=== PATIENT | female | born 1960 | race Caucasian/White ===

== ENCOUNTER 2025-02-09 14:19 | Outpatient (AMB) | payer MEDICARE, SELFPAY ==
--- NOTE | 2025-02-09 14:22 | A.OFFVIS_ITS ---
Vital Signs 02/09/25 14:25 Height 5 ft 4 in Weight 163 lb 8 oz BMI 28.1 BP 140/82 H Blood Pressure Location Rt brachial Position Sitting Pulse 62 Pulse Source Pulse Oximeter Pulse Oximetry (%) 99 Oxygen Delivery Method Room Air Intake Visit Reasons: ENP-Tremor on both hands Intake Note: NPV external referred by PCP Jackson Enriquez ([facility]) for tremor of both hands Count Team Member Required: No Accompanied by: Self / Same As Patient Allergies No Known Allergies Allergy (Verified 02/09/25 14:27) Medication List - Last Reconciled 02/09/25 by Windy Heller MD aripiprazole 2.5 mg (1/2 x 5 mg) PO DAILY atenolol 25 mg PO DAILY cholecalciferol (vitamin D3) 25 mcg PO DAILY citalopram (Celexa) 20 mg PO DAILY folic acid 1 mg PO DAILY lamotrigine (Lamictal) 300 mg PO DAILY losartan 25 mg PO DAILY quetiapine (Seroquel) 25 mg PO BEDTIME HPI Comments Details: 64y/o female comes for evaluation of tremors. She was diagnosed in 2000 with bipolar disorder and was on lithium for 10 years . she had severe tremors while she was on lithium which was stopped and the tremors resolved. This year she started noticing tremors in jarad hands R>L left - more with action and posture. Her tried to decrease her abilify to see if her tremors improved but it worsened. so she is back on abilify and she feels her tremors have improved. she was also started on atenelol which helped her tremors. No voice or tongue tremors. she has mild memory issues .she sleeps good her mood is stable she denies any difficulty with utensils, dressing or shower. Gait is stable [facility] Medical History (Updated 02/09/25 @ 14:48 by Windy Heller MD) Coarse tremors Nodular goiter Hypothyroidism Bipolar disorder Depression Surgical History History of tonsillectomy Hx of colonoscopy Physical Exam Vital Signs: Last Vital Signs Pulse 62 02/09/25 14:25 BP 140/82 H 02/09/25 14:25 Pulse Ox 99 02/09/25 14:25 Oxygen Delivery Method Room Air 02/09/25 14:25 BMI result Body Mass Index 28.1 Const General: cooperative, healthy appearing, comfortable and no acute distress Nutritional Appearance: average body habitus Orientation/consciousness: patient oriented x3 Eyes Pupils: Equal, round and reactive pupils present Neuro Other: mild facial movements - under eyes and some lower lip No tongue or perioral movements Mild right UE postural tremors Mild cog wheel rigidity 2 on right UE FFM and foot taps decreased R>L gait- decreased arm swings right, good stride and posture General: patient oriented x3, moves all extremities and no focal motor deficits Cranial nerves: Yes Facial sensation intact/muscles of mastication intact, Yes Equal, round and reactive pupils present, Yes Bilaterally intact EOM present, Yes Nystagmus not present, Yes Normal facial strength present, Yes Midline tongue present and Yes Symmetric palate elevation present Cognition (Neuro): normal cognition Motor exam (neuro): 5/5 motor strength present throughout Deep tendon reflexes (DTR's): Right triceps reflex intensity grade: 3+, Left triceps reflex intensity grade: 3+, Rt Biceps (C5, C6): 3+, Left biceps reflex intensity grade: 3+, Right brachioradialis reflex intensity grade: 3+, Left brachioradialis reflex intensity grade: 3+, Right patellar reflex intensity grade: 4+ and Left patellar reflex intensity grade: 4+ Coordination: [id number] test normal Assessment & Plan Assessment & Plan (1) Coarse tremors: Comment: with mild extrapyraidal symptoms - likley due to exposure to antipsyhcotics Code(s): G25.2 - Other specified forms of tremor Category: Medical Plan Tremors are mild and stable EPS is mild Suggested to continue atenelol 25 mg qd and will monitor Extrapyramidal symptoms she has hyperreflexia- but denies any neck pain weakness or numbness- will monitor clinically will review MRI brain Medications: New aripiprazole 2.5 mg (1/2 x 5 mg) PO DAILY 30 tabs 0RF Coding Level of Care Code New Pt Level 4 (82791) Complex EM visit Add On G2211 Diagnoses Coarse tremors G25.2
--- OUTSIDE RECORDS SUMMARY | 2025-02-09 14:22 | XMS_ITS | Clinical Summary ---
Author Organization [facility] Address [address] [address] Phone Care Team Providers Care Client Account Specialist Name Role Phone Jackson Schroeder MD Primary Care Provider Allergies No known active allergies Medications QUEtiapine (SEROquel) 25 MG tablet 09/03/2011 Active citalopram (CeleXA) 40 MG tablet 09/03/2011 Active lamoTRIgine (LaMICtal) 150 MG tablet 05/23/2021 Active ARIPiprazole (ABILIFY) 5 MG tablet Take 5 mg by mouth 09/03/2011 Active Cholecalciferol (Vitamin D) 25 MCG (1000 UT) tablet Take by mouth Active folic acid (FOLVITE) 1 MG tablet Take 1 mg by mouth 1 (one) time each day Active losartan (COZAAR) 25 MG tablet Take 25 mg by mouth 1 (one) time each day For 30 days 03/31/2024 Active Blood Pressure Monitoring (Adult Blood Pressure Cuff Lg) kit 1 KIT 1 (ONE) TIME EACH DAY 1 kit 04/20/2024 Active Active Problems Problem Noted Date Diagnosed Date Hypothyroidism 03/04/2023 03/04/2023 Anemia 08/05/2021 03/04/2023 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 03/04/2023 Monoclonal gammopathy of uncertain significance 08/05/2021 03/04/2023 Immunizations Immunization Administration Dates Next Due Pfizer SARS-COV-2 09/11/2020,08/20/2020 Family History Medical History Relation Comments No Known Problems Brother No Known Problems Father Cancer Mother COPD Sister Relation Status Comments Brother Father Mother Sister Social History Tobacco Use Types Packs/Day Years Used Date Smoking Tobacco: Never Passive Smoke Exposure: Never Smokeless Tobacco: Never Tobacco Cessation:Counseling Given: Not Answered Alcohol Use Standard Drinks/Week Comments Never 0 (1 standard drink = 0.6 oz pur e alcohol) Comments Unknown Sex and Gender Information Value Date Recorded Sex Assigned at Not on file Legal Sex Female 1:39 PM EDT Gender Identity Not on file Sexual Orientation Not on file Last Filed Vital Signs Vital Sign Reading Time Taken Comments Blood Pressure 136/68 04/20/2024 12:59 PM EDT Pulse 74 04/20/2024 12:59 PM EDT Temperature - - Respiratory Rate - - Oxygen Saturation 99% 04/08/2023 2:51 PM EDT Inhaled Oxygen Concentration - - Weight 72.1 kg (159 lb) 04/20/2024 12:59 PM EDT Height - - Body Mass Index - - Plan of Treatment Upcoming Encounters Date Type Department Care Team (Late st Contact Info) Description 05/08/2025 1:00 PM EST Office Visit [facility] [address] [phone] Demetrio Valdez MD [address] [phone] Health Maintenance Due Date Last Done Comments Breast Cancer Screening 1960 Pneumococcal Vaccine: 50+ Ye ars (1 of 2 - PCV) 02/17/1979 Colorectal Cancer Screening: Annual FOBT 02/17/2009 Colorectal Cancer Screening: Colonoscopy 02/17/2009 Colorectal Cancer Screening: Sigmoidoscopy 02/17/2009 Influenza Vaccine (#1) 2025 Hepatitis B Vaccine Aged Out No longe r eligible based on patient's age to complete this topic Insurance [facility] Care Teams Client Account Specialist Relationship Specialty Start Date End Date Jackson Schroeder MD [address] [place] [address] PCP - General Internal Medicine 02/23/23
--- OUTSIDE RECORDS SUMMARY | 2025-02-09 14:22 | XMS_ITS | Clinical Summary ---
Author Organization [facility] Address [address] [place] [address] Care Team Providers Care Shooter Helper Name Role Phone Jackson Schroeder MD Primary Care Provider [phone] Allergies No known active allergies Medications Medication Sig Dispensed Refills Start Date End Date Status ARIPiprazole (Abilify) 5 MG tablet Take 5 mg by mouth. 0 09/03/2011 Active citalopram (CeleXA) 40 MG tablet 0 05/23/2021 Active lamoTRIgine (LaMICtal) 150 MG tablet 0 05/23/2021 Active QUEtiapine (SEROquel) 25 MG tablet 0 06/14/2021 Active Active Problems Problem Noted Date Diagnosed Date MGUS (monoclonal gammopathy of unknown significa nce) 08/05/2021 Elevated serum immunoglobulin free light chain l evel 08/05/2021 Anemia in stage 3a chronic kidney disease 2021 Family History Medical History Relation Name Comments Leukemia Brother Melanoma Mother Cancer Paternal Aunt Relation Name Status Comments Brother Mother Paternal Aunt Social History Tobacco Use Types Packs/Day Years Used Date Smoking Tobacco: Never Smokeless Tobacco: Never Alcohol Use Standard Drinks/Week Comments Yes 3 (1 standard drink = 0.6 oz pur e alcohol) Sex and Gender Information Value Date Recorded Sex Assigned at Not on file Gender Identity Not on file Sexual Orientation Not on file Last Filed Vital Signs Vital Sign Reading Time Taken Comments Blood Pressure 157/82 08/05/2021 1:26 PM EST Pulse 73 08/05/2021 1:26 PM EST Temperature 36.6 C (97.8 F) 08/05/2021 1:26 PM EST Respiratory Rate - - Oxygen Saturation 100% 08/05/2021 1:26 PM EST Inhaled Oxygen Concentration - - Weight 71.5 kg (157 lb 9.6 oz) 08/05/2021 1:26 P M EST Height 162.6 cm (5' 4 ) 08/05/2021 1:26 PM EST Body Mass Index 27.05 08/05/2021 1:26 PM EST Plan of Treatment Health Maintenance Due Date Last Done Comments Hepatitis C Screening 1960 Pneumococcal Vaccine (1 of 2 - PCV) 02/17/1966 Pneumococcal Vaccine (1 of 2 - PCV) 02/17/1966 Depression Screening 1972 Preventative Health Evaluation 02/17/1978 DTap / Tdap / Td (1 - Tdap) 02/17/1979 Shingrix-Zoster Vaccine (1 o f 2) 02/17/1979 Cervical Cancer Screening (Pap Smear) 02/17/1981 Colon Cancer Screening (Colonoscopy) 02/17/2005 Breast Cancer Screening (Mammogram) 02/17/2010 COVID-19 Vaccine (3 - Pfizer risk series) 10/09/2020 09/11/2020, 08/20/2020 Influenza Vaccine (#1) 2025 RSV Adult > 60+ Yrs or (1 - 1-dose 75+ series) 02/17/2035 Hepatitis B Vaccines Aged Out No long er eligible based on patient's age to complete this topic RSV Ped < 20 months Aged Out No longe r eligible based on patient's age to complete this topic Care Teams Shooter Helper Relationship Specialty Start Date End Date Jackson Schroeder MD [address] [facility] [address] [place] [address] PCP - General Internal Medicine 06/20/21
--- OUTSIDE RECORDS SUMMARY | 2025-02-09 14:22 | XMS_ITS | Continuity of Care Document ---
Author Organization [facility] Address [address] [place] [address] Phone [phone] Social History Type Date Description Comments Sex Female Sex Unknown Medical Devices Description No Information Available Encounters Description No Information Available Assessments Description No Information Available Plan of Treatment No Information Available Functional Status Description No Information Available Mental Status Description No Information Available Referrals Description No Information Available
--- OUTSIDE RECORDS SUMMARY | 2025-02-09 14:22 | XMS_ITS | Clinical Summary ---
Author Organization [facility] Address [address] [place] [address] Care Team Providers Care Drywall Hanger Helper Name Role Phone Unavailable Primary Care Provider Unavailabl e Immunizations Immunization Administration Dates Next Due Covid-19 MRNA Vaccine - Pfizer 12+ (Purple Cap) 09/11/2020,08/20/2020 Social History Tobacco Use Types Packs/Day Years Used Date Smoking Tobacco: Never Assessed Comments Unknown Sex and Gender Information Value Date Recorded Sex Assigned at Not on file Legal Sex Female 5:08 PM EST Gender Identity Not on file Sexual Orientation Not on file Plan of Treatment Health Maintenance Due Date Last Done Comments Hepatitis C Virus Screening 1960 HIV Screening 02/17/1973 DTaP/Tdap/Td Vaccines (1 - Tdap) 02/17/1979 Pap Smear (Ages 21-65) 02/17/1981 Mammogram 2000 Colonoscopy 02/17/2005 Pneumococcal Vaccines 50+ (1 of 1 - PCV) 02/17/2010 Zoster (Shingles) Vaccine (1 of 2) 02/17/2010 COVID-19 Vaccine (3 - 2023-2 5 season) 2024 09/11/2020, 08/20/2020 Influenza Vaccine 02/03/2025 RSV Vaccine 60 years and older and Patients (1 - 1-dose 75+ series) 02/17/2035 Hepatitis B Vaccines Aged Out No long er eligible based on patient's age to complete this topic Insurance [facility] PPO
[2025-02-09 14:25] VITALS: BP 140/82; PULSE 62; O2SAT 99; BMI 28.1
== END 2025-02-09 15:04 | disposition home or self-care (01) ==
LOC: HO.HSMS 14:20
PROVIDERS: PCP Internal Medicine; Visit Provider Psychiatry & Neurology Neurology
DX: G25.2 Other specified forms of tremor (principal)
CPT/HCPCS: 99204; G2211

== ENCOUNTER → 2025-02-09 14:19 | Outpatient (BNVA) | payer MEDICARE, SELFPAY | PROVIDERS: PCP Internal Medicine; Visit Provider Psychiatry & Neurology Neurology | DX: G25.2 Other specified forms of tremor (principal) | CPT/HCPCS: 99202 ==